=== PATIENT | male | born 1990 | race African-American/Black ===

== ENCOUNTER 2017-08-23 14:25 | Emergency (ER) | payer SELFPAY ==
[2017-08-23 15:20] LABS: Bilirubin Negative (Negative); Blood, Urine Trace (Negative); Clarity Clear (Clear); Glucose, Urine (Dipstick) >=1000 mg/dL (Negative); Leukocyte Negative (Negative); Nitrite Negative (Negative); Protein, Urine (Dipstick) Negative (Neg-Trace); Specific Gravity, Urine 1.015 (1.005-1.030)
[2017-08-23 15:25] LABS: Anion Gap 12 mmol/L (10-20); BUN (Urea Nitrogen) 13 mg/dL (8.9-20.6); Calc. Creatinine Clearance 0 mL/min (70-130); Calcium 9.8 mg/dL (7.8-10.44); Carbon Dioxide 25 mmol/L (22-29); Chloride 105 mmol/L (98-107); Estimated GFR-MDRD Greater than 90; Glucose 299 mg/dL (70-105); Potassium 4.1 mmol/L (3.5-5.1); Sodium 138 mmol/L (136-145)
[2017-08-23 15:34] LABS: Anisocytosis SLIGHT = 6-15 cells (100X) (0-5/hpf); Eosinophils 2 % (0-10); Lymphocytes 46 % (21-51); MDiff Complete? YES; Mean Corpuscular HGB CONC 32.4 g/dL (32.0-36.0); Mean Corpuscular Hemoglobin 24.1 pg (27.0-31.0); Mean Corpuscular Volume 74.5 fl (80.0-94.0); Mean Platelet Volume 10.8 fL (7.4-10.4); Microcytosis SLIGHT = 6-15 cells (100X) (0-5/hpf); Monocytes 11 % (0-10); Neutrophil 38 % (42-75); PLT Morphology Comment Appears Adequate; Platelet Count 162 thou/uL (130-400); RBC Distribution Width 12.3 % (11.5-14.5); Reactive Lymphocytes 3 % (0-10); White Blood Cell (WBC) Count 6.7 thou/uL (4.8-10.8)
[2017-08-23 16:09] LABS: Actual Bicarbonate (HCO3v) 27 mEq/L (22-26); Base Excess -0.2 mEq/L (0 (+/- 2.5)); Hematocrit-VBG 43.1 % (39-49); Hemoglobin (Hb) 13.4 g/dL (13.2-17.3)
[2017-08-23 16:10] LABS: Chloride (ABG LAB) 100 mmol/L (98-106); Potassium - ABG Lab 4.2 mmol/L (3.70-5.30)
== END 2017-08-23 18:01 | disposition home or self-care (01) ==
LOC: SCSER 14:25
DX: E11.65 Type 2 diabetes mellitus with hyperglycemia (principal); Z79.84 Long term (current) use of oral hypoglycemic drugs
CPT/HCPCS: 36416; 80048; 81003; 81015; 82010; 82805; 85025; 96360; 96361

== ENCOUNTER 2018-11-03 01:30 | Inpatient (IN) | payer BC, SELFPAY ==
[2018-11-03 02:30] LABS: #Basophils 0.1 thou/uL (0.0-0.2); #Eosinphils 0.1 thou/uL (0.0-0.7); #Lymphocytes 3.7 thou/uL (1.20-3.40); #Monocytes 0.9 thou/uL (0.11-0.59); #Neutrophils 7.4 thou/uL (1.40-6.50); %Basophils 0.6 % (0.0-1.0); %Eosinophils 0.5 % (0.0-10.0); %Lymphocytes 30.7 % (21.0-51.0); %Monocytes 7.5 % (0.0-10.0); %Neutrophils 60.7 % (42.0-75.0); Hemoglobin 15.7 g/dL (14.0-18.0); Mean Corpuscular HGB CONC 32.8 g/dL (32.0-36.0); Mean Corpuscular Hemoglobin 25.8 pg (27.0-31.0); Mean Corpuscular Volume 78.9 fL (78.0-98.0); Mean Platelet Volume 10.1 fL (7.4-10.4); Platelet Count 155 thou/uL (130-400); RBC Distribution Width 12.5 % (11.5-14.5); Red Blood Cell (RBC) Count 6.08 mill/uL (4.70-6.10); White Blood Cell (WBC) Count 12.1 thou/uL (4.8-10.8)
[2018-11-03] MEDS ORDERED: diphenhydrAMINE 50 MG/ML VIAL ONE (02:30)
[2018-11-03 02:49] LABS: ALT (SGPT) 35 U/L (8-55); AST (SGOT) 17 U/L (5-34); Albumin 3.9 g/dL (3.5-5.0); Alkaline Phosphatase 132 U/L (40-150); Anion Gap 12 mmol/L (10-20); BUN (Urea Nitrogen) 8 mg/dL (8.9-20.6); Bilirubin, Total 1.1 mg/dL (0.2-1.2); Calc. Creatinine Clearance 0 mL/min (70-130); Calcium 9.6 mg/dL (7.8-10.44); Carbon Dioxide 26 mmol/L (22-29); Chloride 100 mmol/L (98-107); Estimated GFR-MDRD Greater than 90; Globulin 3.8 g/dL (2.4-3.5); Glucose 295 mg/dL (70-105); Lipase 21 U/L (8-78); Potassium 3.8 mmol/L (3.5-5.1); Protein, Total 7.7 g/dL (6.0-8.3); Sodium 134 mmol/L (136-145)
[2018-11-03] MEDS ORDERED: cefOXitin 2 GM VIAL ONE ×2 (03:16→10:03)
[2018-11-03] MEDS ORDERED: Morphine 4 MG/ML VIAL ONE (03:16)
[2018-11-03] MEDS ORDERED: Ondansetron PF 4 MG/2 ML Vial ONE (03:16)
[2018-11-03] MEDS ORDERED: Ondansetron ODT 4 MG TAB SL PRN (05:06)
[2018-11-03] MEDS ORDERED: Ondansetron PF 4 MG/2 ML Vial IVP PRN ×2 (05:06→12:46)
[2018-11-03 05:10] VITALS: BMI 35.6
[2018-11-03] MEDS: Sodium Chloride 0.9% 1,000 ML IV SCH ×2 (05:20→14:46)
--- NOTE | 2018-11-03 07:42 | CT ---
PRELIMINARY REPORT/[facility]/EMERGENCY AFTER HOURS PROCEDURE: Addendum created by Caroline Heard MD on 11/03/2018 3:24 AM Central Time ([place]) THIS REPORT CONTAINS FINDINGS THAT MAY BE CRITICAL TO PATIENT CARE. The findings were verbally communicated via telephone conference with ROYAL HAHN at 3:24 AM CDT on 11/03/2018. The findings were acknowledged and understood. Initial Report created on 11/03/2018 3:23 AM C entral Time ([place]) EXAM: CT Abdomen and Pelvis With Contrast EXAM DATE/TIME: 11/03/2018 2:33 AM CLINICAL HISTORY: 28 years old, male; Abdominal pain; Acute; Patient HX: Er 9. No previous in pacs. 28/m PT presents with complaint of rlq abd pain starting Wednesday, worse today. States he is concerned he has appendicitis. He also reports feeling a knot to the center of his stomach, worse after heavy lifting. No nausea, vomiting, diarrhea, fever, or urinary complaints TECHNIQUE: Imaging protocol: Axial computed tomography images of the abdomen and pelvis with intravenous contrast. Coronal reformatted images were created and reviewed. COMPARISON: No relevant prior studies available. FINDINGS: ABDOMEN: Liver: No mass. Gallbladder and bile ducts: No calcified stones. No ductal dilation. Pancreas: No mass or ductal dilation. Spleen: No mass. Adrenals: No mass. Kidneys and ureters: No hydronephrosis. Stomach and bowel: No obstruction or mucosal thickening. Appendix: The appendix is dilated to 1.2 cm with periappendiceal fat stranding. PELVIS: Bladder: Normal. Reproductive: Normal. ABDOMEN and PELVIS: Intraperitoneal space: Trace fluid in the right lower quadrant. No free air. Bones/joints: No suspicious bone lesions. Soft tissues: No acute findings. Vasculature: No abdominal aortic aneurysm. Lymph nodes: Reactive lymph nodes right lower quadrant. IMPRESSION: Acute uncomplicated appendicitis. Thank you for allowing us to participate in the care of your patient. Dictated and Authenticated by: Caroline Heard MD 11/03/2018 3:23 AM Central Time ([place]) FINAL REPORT EMERGENCY AFTER HOURS CT ABDOMEN AND PELVIS WITH IV CONTRAST: FINDINGS/IMPRESSION: I agree with the preliminary report given by Dr. Heard of [facility]. Transcribed Date/Time: 11/03/2018 8:07 AM
[2018-11-03] MEDS ORDERED: ISOVUE-370 76%-LOCM 1 ML ONE (08:50)
[2018-11-03] MEDS ORDERED: Sodium Chloride 0.9% 100 ML ONE (10:03)
[2018-11-03] MEDS ORDERED: Bupivacaine/Epinephrine 0.25% 30 ML VIAL ONE (11:14)
[2018-11-03] MEDS ORDERED: Fentanyl 100 MCG/2 ML VIAL ONE ×2 (11:19)
[2018-11-03] MEDS ORDERED: Midazolam HCl 2 mg/2 ml Vial ONE (11:19)
[2018-11-03] MEDS ORDERED: Promethazine HCl 25 MG/ML VIAL IM PRN (12:46)
[2018-11-03] MEDS ORDERED: Dextrose 5% in Water 1,000 ML IV PRN (12:46)
[2018-11-03] MEDS ORDERED: HYDROcodone/Acetaminophen 10/325 mg Tablet PO PRN ×2 (12:46)
[2018-11-03] MEDS ORDERED: Morphine 2 MG/ML SYRINGE SLOW IVP PRN (12:46)
[2018-11-03] MEDS ORDERED: Dextrose 50% Abboject 50 ML SYRINGE SLOW IVP PRN (12:46)
[2018-11-03] MEDS ORDERED: hydrALAZINE 20 MG/ML VIAL SLOW IVP PRN (12:46)
[2018-11-03] MEDS ORDERED: Morphine 4 MG/ML VIAL SLOW IVP PRN (12:46)
[2018-11-03] MEDS ORDERED: SUGAMMADEX SODIUM 200 MG/2 ML VIAL ONE (12:49)
[2018-11-03] MEDS: D5 1/2 NS w/20 mEq KCL 1,000 ML IV SCH ×2 (14:49→23:26)
--- NOTE | 2018-11-03 14:56 | OP ---
DATE OF PROCEDURE: 11/03/2018 PREOPERATIVE DIAGNOSIS: Acute appendicitis. PROCEDURE PERFORMED: Laparoscopic appendectomy. INDICATIONS: This is a 28-year-old male, who presented with a 3-day history of right lower quadrant pain. CT showed acute appendicitis. FINDINGS: Appendiceal phlegmon. DESCRIPTION OF PROCEDURE: After informed consent was obtained, the patient was taken to the operating room, given general endotracheal anesthesia, placed in supine position. Abdomen was prepped and draped in usual fashion. Local anesthesia infiltrated subcutaneously and deep. Subumbilical incision was performed. Subcu divided sharply and the fascia grasped and 2 stay sutures of 0 Vicryl placed in each side of midline. Midline incised. Digital palpation revealed no local adhesions. A blunt 12-mm trocar inserted. Pneumoperitoneum was created to a pressure of 15 mmHg. A 0-degree laparoscope was inserted under direct vision. Two 5-mm ports were placed, one suprapubic and one right lateral abdomen. The appendix was plastered to the right lower pelvic area. It was able to be bluntly. Then, the mesoappendix divided utilizing the LigaSure. The base of appendix was divided with the linear 45-mm white load stapler. The appendix was placed in an endosac, removed from the abdomen in the endosac. Hemostasis assured. The abdomen was irrigated. Irrigation fluid removed. Trocars and retractors removed. The fascia closed with interrupted 0 Vicryl suture. The skin closed with interrupted 4-0 Rapide. Dermabond applied. The patient tolerated the procedure well, transferred to Recovery in good condition. Sponge and needle count verified correct x2. Job ID: [id number]
--- NOTE | 2018-11-03 15:19 | HP ---
CHIEF COMPLAINT: Right lower quadrant abdominal pain. HISTORY OF PRESENT ILLNESS: The patient is a 28-year-old male with a 2-day history of right lower quadrant pain, made it very difficult for him to walk. No nausea or vomiting. No fever. No previous episodes. CT scan showed appendicitis. PAST MEDICAL HISTORY: Hypertension, diabetes, and vertigo. PAST SURGICAL HISTORY: None. MEDICATIONS: He is on metformin. ALLERGIES: NO KNOWN DRUG ALLERGIES, BUT HE HAS A SENSITIVITY TO SHELLFISH. 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 No tobacco, but he drinks alcohol daily. FAMILY HISTORY: Diabetes, cancer, and hypertension. PHYSICAL EXAMINATION: GENERAL: Well-developed, well-nourished male, in no apparent distress. VITAL SIGNS: His temperature is 99.4, pulse 98, and blood pressure 139/73. HEENT: Unremarkable. LUNGS: Clear. HEART: Regular rate and rhythm. ABDOMEN: Obese, soft, tender in the right lower quadrant. EXTREMITIES: Unremarkable. DIAGNOSTIC DATA: CT scan shows appendicitis. ASSESSMENT: Acute appendicitis. PLAN: Laparoscopic appendectomy. CONSENT: I have discussed planned procedure as well as risk of bleeding, infection, injury to bowel, bladder, and need to open. He understands and gives informed consent. Job ID: [id number]
[2018-11-03] MEDS: Ketorolac Tromethamine 30 MG/ML VIAL IVP SCH ×2 (17:31→23:25)
[2018-11-03] MEDS: Piperacillin/Tazobactam 3.375 GM in Sodium Chloride 0.9% 100 ML IVPB SCH ×2 (17:32→23:24)
--- NOTE | 2018-11-03 17:50 | RAD ---
AP VIEW CHEST 11/03/18 HISTORY: Cough. AP view chest is obtained on 11/03/18. Comparison made to a previous exam from 07/11/16. AP view chest demonstrates an area of air space opacity in the right middle lobe concerning for right middle lobe pneumonia. The left lung is well aerated. IMPRESSION: Area of opacity in the right middle lung compatible with right middle lobe pneumonia. POS: FFK
[2018-11-03] MEDS: Famotidine 20 MG TAB PO SCH (20:33)
[2018-11-03] MEDS: Famotidine/PF 20 mg/2ml Vial SLOW IVP SCH (20:34)
[2018-11-04] MEDS: Ketorolac Tromethamine 30 MG/ML VIAL IVP SCH (05:20)
[2018-11-04] MEDS: Piperacillin/Tazobactam 3.375 GM in Sodium Chloride 0.9% 100 ML IVPB SCH (05:20)
[2018-11-04 06:32] LABS: #Lymphocytes 2.2 thou/uL (1.20-3.40); #Monocytes 1.1 thou/uL (0.11-0.59); #Neutrophils 9.3 thou/uL (1.40-6.50); %Basophils 0.2 % (0.0-1.0); %Eosinophils 0.1 % (0.0-10.0); %Lymphocytes 17.3 % (21.0-51.0); %Monocytes 8.7 % (0.0-10.0); %Neutrophils 73.7 % (42.0-75.0); Hemoglobin 13.8 g/dL (14.0-18.0); Mean Corpuscular HGB CONC 33.1 g/dL (32.0-36.0); Mean Corpuscular Hemoglobin 25.7 pg (27.0-31.0); Mean Corpuscular Volume 77.7 fL (78.0-98.0); Mean Platelet Volume 10.1 fL (7.4-10.4); Platelet Count 161 thou/uL (130-400); RBC Distribution Width 12.2 % (11.5-14.5); Red Blood Cell (RBC) Count 5.36 mill/uL (4.70-6.10); White Blood Cell (WBC) Count 12.7 thou/uL (4.8-10.8)
[2018-11-04 06:52] LABS: Anion Gap 10 mmol/L (10-20); BUN (Urea Nitrogen) 10 mg/dL (8.9-20.6); Calc. Creatinine Clearance 215 mL/min (70-130); Calcium 9.1 mg/dL (7.8-10.44); Carbon Dioxide 26 mmol/L (22-29); Chloride 101 mmol/L (98-107); Estimated GFR-MDRD Greater than 90; Glucose 254 mg/dL (70-105); Potassium 4.4 mmol/L (3.5-5.1); Sodium 133 mmol/L (136-145)
[2018-11-04] MEDS: Famotidine 20 MG TAB PO SCH (07:55)
[2018-11-04] MEDS: Famotidine/PF 20 mg/2ml Vial SLOW IVP SCH (07:56)
[2018-11-04] MEDS ORDERED: metFORMIN 500 MG TAB PO SCH (08:00)
[2018-11-04] MEDS ORDERED: Enoxaparin Sodium 40 MG/0.4 ML SYRINGE SC SCH (09:00)
[2018-11-04] MEDS ORDERED: HumaLOG 300 UNITS/3 ML VIAL SC PRN ×2 (10:19)
[2018-11-04] MEDS ORDERED: Dextrose 5% in Water 1,000 ML IV PRN (10:19)
[2018-11-04] MEDS ORDERED: Dextrose 50% Abboject 50 ML SYRINGE SLOW IVP PRN (10:19)
--- NOTE | 2018-11-04 10:48 | CON ---
DATE OF CONSULTATION: 11/04/2018 PRIMARY CARE PROVIDER: Dr. Yamilex Narayan, [place], [place]. REASON FOR CONSULT: Question of pneumonia. HISTORY OF PRESENT ILLNESS: This is a 28-year-old male, who was admitted on 11/03/2018, after presenting with increasing abdominal pain, diagnosed with acute appendicitis. The patient was admitted under the General Surgery Service, undergoing laparoscopic appendectomy on 11/03/2018. The patient was noted with surgical findings of appendiceal phlegmon and placed on a current regimen of Zosyn. The patient received pain control and states he feels much better after the surgical intervention. Postoperatively, the patient had complained of increased cough and some blood-tinged sputum, undergoing chest imaging showing a right middle lobe infiltrate concerning for early pneumonia. The patient is unsure if he has had pneumonia in the past and has not had a pneumonia vaccination. The patient denies any specific fever, chills, or persistent cough currently. The patient denies any chronic lung conditions, but does state a history of diabetes mellitus, taking metformin for control. The patient was initiated on IV Levaquin 500 mg daily and has received 1 dose. PAST MEDICAL HISTORY: 1. Hypertension. 2. Diabetes mellitus type 2, on oral hypoglycemics. 3. History of vertigo. 4. Morbid obesity. PAST SURGICAL HISTORY: Status post laparoscopic appendectomy. CURRENT MEDICATIONS: Metformin 500 mg p.o. b.i.d. ALLERGIES: TO SHELLFISH. FAMILY HISTORY: Positive for diabetes mellitus and hypertension. SOCIAL HISTORY: The patient resides in [place], [place]. No current tobacco or illicit drug use. Drinks alcohol daily. 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 REVIEW OF SYSTEMS: CONSTITUTIONAL: Negative for weight loss or gain, ability to conduct usual activities. SKIN: Negative for rash, itching. EYES: Negative for double vision, pain. ENT/MOUTH: Negative for nose bleeding, neck stiffness, pain, tenderness. CARDIOVASCULAR: Negative for palpitations, dyspnea on exertion, orthopnea. RESPIRATORY: Negative for shortness of breath, wheezing, cough, hemoptysis, fever or night sweats. GASTROINTESTINAL: Negative for poor appetite, abdominal pain, heartburn, nausea, vomiting, constipation, or diarrhea. GENITOURINARY: Negative for urgency, frequency, dysuria, nocturia. MUSCULOSKELETAL: Negative for pain, swelling. NEUROLOGIC/PSYCHIATRIC: Negative for anxiety, depression. ALLERGY/IMMUNOLOGIC: Negative for skin rash, bleeding tendency. Otherwise, negative except as stated per HPI. PHYSICAL EXAMINATION: VITAL SIGNS: Currently; blood pressure 105/67, pulse 84, respiratory rate 18, temperature 98.8 degrees Fahrenheit, and O2 saturation 94% on room air. GENERAL APPEARANCE: This is a 28-year-old male, alert and oriented x3, pleasant, conversant, in no acute distress. HEENT: Pupils are equal, round, and reactive to light and accommodation. Extraocular muscles are intact. No scleral icterus. No conjunctival injection. Nares are patent. Op is clear. Teeth in good repair. NECK: Supple. No cervical adenopathy. No thyromegaly. No carotid bruits. No JVD appreciated. Cervical spine with full active and passive range of motion. No meningeal signs noted. CHEST: Lungs are clear to auscultation bilaterally. CARDIOVASCULAR: S1 and S2 without noted murmur, rub, or gallop. ABDOMEN: Obese and soft, with mild tenderness to palpation in the right lower quadrant. Surgical incision sites clean, dry, and intact. Bowel sounds are positive in all 4 quadrants. There is no rebound or guarding appreciated. EXTREMITIES: Warm and dry with fair turgor. No clubbing, cyanosis, or asymmetric edema appreciated. Pulses are palpable distally at the dorsalis pedis, posterior tibial, and popliteal arteries bilaterally. Capillary refill less than 2 seconds. NEUROLOGIC: Cranial nerves 2 through 12 are grossly intact. No focal or lateralizing signs appreciated. PERTINENT LAB AND X-RAY FINDINGS: Sodium 133, potassium 4.4, chloride 101, CO2 of 26, BUN 10, creatinine 0.99, estimated GFR greater than 90, glucose 254, and calcium 9.1. LFTs within normal limits. Lipase 21. CBC showed a white blood cell count of 12.7, hemoglobin 14, hematocrit 42, MCV 78, and platelet count 161. CT of the abdomen and pelvis dated 11/03/2018, showed acute appendicitis. Portable chest x-ray dated 11/03/2018, showed right middle lobe infiltrate. ASSESSMENT AND PLAN: 1. Right middle lobe pneumonia. Question of hospital-acquired versus community-acquired given less than 24-hour hospital stay. However, the patient was recently intubated for laparoscopic appendectomy. Continue Levaquin 500 mg IV daily. Recommend Levaquin 750 mg p.o. daily for 10-day course after discharge. Continue general supportive management. 2. Diabetes mellitus type 2. Resume metformin 500 mg p.o. b.i.d. Insulin sliding scale for reflexive coverage. ADA diet. 3. Appendicitis. 4. Status post laparoscopic appendectomy. Postop day number #1. Pain control as clinically indicated. Ambulation as tolerated. 5. Chronic hyponatremia. Suspect multifactorial including hyperglycemia. 6. Prophylaxis. Sequential compression devices while in bed. Pepcid 20 mg b.i.d. 7. Code status is full. Surrogate medical decision maker is the patient's mother. Thank you for the consultation. We will continue to follow with primary service during the hospital stay. Job ID: [id number]
[2018-11-04] MEDS: D5 1/2 NS w/20 mEq KCL 1,000 ML IV SCH (10:57)
[2018-11-04 11:36] VITALS: BP 117/76; TEMP 97.8
--- NOTE | 2018-11-04 16:49 | DIS ---
DATE OF ADMISSION: 11/03/2018 DATE OF DISCHARGE: 11/04/2018 DISCHARGE DIAGNOSES: 1. Acute gangrenous appendicitis. 2. Probable aspirating pneumonitis, right middle lobe. PROCEDURES DURING ADMISSION: Laparoscopic appendectomy. HOSPITAL COURSE: The patient was admitted, given IV antibiotics, taken to the operating room, where he underwent a laparoscopic appendectomy. Postoperatively, he developed some hemoptysis and cough. Chest x-ray showed some opacification of the right middle lobe. He was maintained on antibiotics. He feels fine now. His cough is gone. His pain is minimal. He is afebrile, normal white count. Plan is discharged home on Levaquin and [place], and will follow up in 1 to 2 weeks with repeat chest x-ray. Job ID: [id number]
== END 2018-11-04 11:46 | disposition home or self-care (01) | DRG 338 ==
LOC: ERS 01:30 → T4-B 03:25 → OBSVTOIN 12:46
PROVIDERS: ADMIT Surgery; ATTEND Surgery
PROC: 0DTJ4ZZ Resection of Appendix, Percutaneous Endoscopic Approach (ICD-10-PCS; principal; 2018-11-03)
DX: K35.33 Acute appendicitis with perforation, localized peritonitis, and gangrene, with abscess (principal); J69.0 Pneumonitis due to inhalation of food and vomit; E87.1 Hypo-osmolality and hyponatremia; J95.89 Other postprocedural complications and disorders of respiratory system, not elsewhere classified; I10 Essential (primary) hypertension; E11.9 Type 2 diabetes mellitus without complications; Z91.013 Allergy to seafood; Y83.6 Removal of other organ (partial) (total) as the cause of abnormal reaction of the patient, or of later complication, without mention of misadventure at the time of the procedure
CPT/HCPCS: 36415; 36416; 71045; 74177; 80048; 80053; 83690; 85025; J0131; J0694; J1200; J1650; J1885; J1956; J2250; J2270; J2405; J2543; J3010; J3490; Q9966

== ENCOUNTER 2019-07-21 00:54 | Emergency (ER) | payer BC ==
[2019-07-21] MEDS ORDERED: Lidocaine 1% (PF) 30 ML VIAL ONE (01:07)
== END 2019-07-21 02:00 | disposition home or self-care (01) ==
LOC: ERS 00:54
DX: L03.012 Cellulitis of left finger (principal); E11.9 Type 2 diabetes mellitus without complications; I10 Essential (primary) hypertension; Z79.84 Long term (current) use of oral hypoglycemic drugs
CPT/HCPCS: 10060; J2001

== ENCOUNTER 2021-04-28 01:21 | Emergency (ER) | payer SELFPAY ==
[2021-04-28] MEDS ORDERED: Ketorolac Tromethamine 30 MG/ML VIAL ONE (02:35)
== END 2021-04-28 02:44 | disposition home or self-care (01) ==
LOC: ERS 01:21
DX: K02.9 Dental caries, unspecified (principal); E11.9 Type 2 diabetes mellitus without complications; I10 Essential (primary) hypertension; Z79.84 Long term (current) use of oral hypoglycemic drugs
CPT/HCPCS: 99281; J1885

== ENCOUNTER 2021-06-23 00:38 | Emergency (ER) | payer SELFPAY | END 2021-06-23 01:27 | disposition left against medical advice (07) | LOC: ERS 00:38 | DX: Z53.21 Procedure and treatment not carried out due to patient leaving prior to being seen by health care provider (principal) ==